=== PATIENT | female | born 1940 | race Two or more races ===

== ENCOUNTER 2019-04-18 06:21 | Day surgery (SDC) | payer OTHER ==
[~2019-04-18 06:21] MED LIST: ALTACE5 MG PO; FOSAMAX70 MG PO
[2019-04-18] MEDS ORDERED: PERCOCET 5-3251 EACH PO (11:38)
== END 2019-04-18 18:00 | disposition home or self-care (01) ==
LOC: CIR.AMB 06:21
DX: C73 Malignant neoplasm of thyroid gland (principal); D35.1 Benign neoplasm of parathyroid gland